=== PATIENT | male | born 1975 | race Caucasian/White ===

== ENCOUNTER 2017-04-23 19:31 | Emergency (ER) | payer OTHER ==
[~2017-04-23] VITALS: Ht 180.3 cm; Wt 102.5 kg
[2017-04-23 19:50] VITALS: BP 141/95; PULSE 84; RESP 20; TEMP 98.1; O2SAT 98
[2017-04-23] MEDS ORDERED: CLAR10CA3 PO (19:53)
[2017-04-23] MEDS ORDERED: ORPHENADRINE INJ 60 MG/2 ML AMP IM ONE (20:00)
[2017-04-23] MEDS ORDERED: KETOROLAC TROMETHAMINE 60 MG/2 ML (IM) VIAL IM ONE (20:00)
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
[2017-04-23] MEDS ORDERED: CYCL1TAB29 PO (21:46)
[2017-04-23] MEDS ORDERED: NORC5TAB PO (21:46)
[2017-04-23] MEDS ORDERED: NAPR500 PO (21:46)
== END 2017-04-23 22:10 | disposition home or self-care (01) ==
LOC: NEDAMB 19:31
DX: M54.42 Lumbago with sciatica, left side (principal); S16.1XXA Strain of muscle, fascia and tendon at neck level, initial encounter; V49.49XA Driver injured in collision with other motor vehicles in traffic accident, initial encounter; Y92.410 Unspecified street and highway as the place of occurrence of the external cause; G89.29 Other chronic pain; Z72.0 Tobacco use
CPT/HCPCS: 72125; 72131; 96372; 99285; J1885; J2360